=== PATIENT | female | born 1965 | race Caucasian/White ===

== ENCOUNTER → 2020-05-21 | Day surgery (SDC) | payer OTHER ==
[2020-05-20 12:21] VITALS: BMI 23.8
[2020-05-21 08:35] VITALS: TEMP 97.8
[2020-05-21 09:13] VITALS: BP 116/63; PULSE 53
== END | disposition home or self-care (01) ==
LOC: JASU-ENDO 04:32
PROVIDERS: ATTEND Internal Medicine Gastroenterology
PROC: 0DJD8ZZ Inspection of Lower Intestinal Tract, Via Natural or Artificial Opening Endoscopic (ICD-10-PCS; principal; 2020-05-21 08:00)
DX: Z12.11 Encounter for screening for malignant neoplasm of colon (principal); K57.30 Diverticulosis of large intestine without perforation or abscess without bleeding; K64.8 Other hemorrhoids; Z83.71 Family history of colonic polyps

== ENCOUNTER 2023-06-28 04:44 | Day surgery (SDC) | payer BC ==
[2023-06-17 07:11] VITALS: BMI 22.0
[2023-06-28 11:52] VITALS: TEMP 98.9
[2023-06-28 12:03] VITALS: RESP 18
[2023-06-28 12:50] VITALS: BP 104/60; PULSE 56
== END 2023-06-28 12:50 | disposition home or self-care (01) ==
LOC: JASU-ENDO 04:44
PROVIDERS: ATTEND Internal Medicine Gastroenterology
PROC: 0DBL8ZX Excision of Transverse Colon, Via Natural or Artificial Opening Endoscopic, Diagnostic (ICD-10-PCS; 2023-06-28)
PROC: 0DBP8ZX Excision of Rectum, Via Natural or Artificial Opening Endoscopic, Diagnostic (ICD-10-PCS; principal; 2023-06-28 11:00)
DX: Z51.11 Encounter for antineoplastic chemotherapy (principal); D12.8 Benign neoplasm of rectum; D12.3 Benign neoplasm of transverse colon; K57.30 Diverticulosis of large intestine without perforation or abscess without bleeding
CPT/HCPCS: 88305-TC